=== PATIENT | male | born 1995 | race Caucasian/White ===

== ENCOUNTER 2016-12-25 16:46 | Emergency (ER) | payer BC, OTHER ==
[~2016-12-25] VITALS: Wt 65.9 kg
[2016-12-25] MEDS ORDERED: FLUORESCEIN STRIP RIGHT EYE ONE (19:30)
[2016-12-25] MEDS ORDERED: HYDR-906 PO (19:51)
[2016-12-25] MEDS ORDERED: NAPR-688 PO (19:51)
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
== END 2016-12-25 20:02 | disposition home or self-care (01) ==
LOC: FTE 16:46
DX: S01.112A Laceration without foreign body of left eyelid and periocular area, initial encounter (principal); F17.210 Nicotine dependence, cigarettes, uncomplicated; W50.0XXA Accidental hit or strike by another person, initial encounter; Y92.9 Unspecified place or not applicable
CPT/HCPCS: 99283

== ENCOUNTER 2017-01-16 01:19 | Emergency (ER) | payer BC ==
[~2017-01-16] VITALS: Ht 172.7 cm; Wt 66.0 kg
[~2017-01-16 01:19] MED LIST: HYDR-906 PO; NAPR-688 PO
[2017-01-16 01:21] VITALS: Ht 172.7 cm; Wt 66.0 kg
[2017-01-16] MEDS ORDERED: morphine 4 MG/ML VIAL IV STA (01:38)
[2017-01-16] MEDS ORDERED: ONDANSETRON 4 MG INJ IV STA (01:38)
[2017-01-16] MEDS ORDERED: DIAZEPAM 5 MG/ML SYG IV ONE (02:00)
--- NOTE | 2017-01-16 02:07 | ERD ---
ER Documentation Chief Complaint Chief Complaint pT REPORTS HE WOKE UP AT 0100 UNABLE TO CLOSE MOUTH HPI 21-year-old male presents here in emergency department for complaints of his jaw being stuck, unable to close the mouth, patient woke up with it. Patient denies any trauma in affected area. Patient denies having this a problem before. Patient denies any fever chills. Patient denies recent possible tetanus exposure, has up-to-date tetanus vaccine. He did not have any puncture wound or lacerations previously. Patient denies any stiffness in other parts of the body. ROS All systems reviewed and are negative except as per history of present illness. Medications Home Meds Active Scripts Hydrocodone/Acetaminophen ([place] 5-325 Tablet) 1 Each Tablet, 1 EACH PO Q6, #10 TAB Prov:VIRAL RAY DO 12/25/16 Naproxen* (Naproxen*) 500 Mg Tablet, 500 MG PO BID Y for PAIN, #14 TAB Prov:VIRAL RAY DO 12/25/16 Allergies Allergies: Coded Allergies: No Known Allergy (Unverified , 12/25/16) PMhx/Soc Medical and Surgical Hx: pt denies Medical Hx, pt denies Surgical Hx History of Surgery: No Anesthesia Reaction: No Hx Neurological Disorder: No Hx Respiratory Disorders: No Hx Cardiac Disorders: No Hx Psychiatric Problems: No Hx Miscellaneous Medical Probl: No Hx Alcohol Use: Yes Hx Substance Use: Yes (marijuana) Hx Tobacco Use: Yes Smoking Status: Never smoker FmHx Family History: No coronary disease, No diabetes, No other Physical Exam Vitals Vital Signs Date Time Temp Pulse Resp B/P Pulse Ox O2 Delivery O2 Flow Rate FiO2 01/16/17 01:21 98.3 73 16 136/80 98 Physical Exam GENERAL: The patient is well developed and appropriate for usual state of health, in no apparent distress. HEENT: Atraumatic. Ears: Normal tympanic membrane, no erythema or bulging. No ear canal swelling. No ear discharge. Nose: normal nasal turbinates, no erythema or swelling. Normal nasal discharge. Throat: oropharynx clear. No tonsillar swelling or tonsillar exudates. No lymphadenopathy. Noted mild to be open, unable to close the jaw CHEST: Clear to auscultation bilaterally. There are no rales, wheezes or rhonchi. HEART: Regular rate and rhythm. No murmurs, clicks, rubs or gallops. No S3 or S4. ABDOMEN: Soft, nontender and nondistended. Good bowel sounds. No rebound or guarding. No gross peritonitis. No gross organomegaly or masses. No Schreiber sign or McBurney point tenderness. BACK: No midline or flank tenderness. EXTREMITIES: Equal pulses bilaterally. There is no peripheral clubbing, cyanosis or edema. No focal swelling or erythema. Full range of motion. Grossly neurovascularly intact. NEURO: Alert and oriented. Cranial nerves 2-12 intact. Motor strength in all 4 extremities with 5/5 strength. Sensation grossly intact. Normal speech and gait. SKIN: There is no apparent rash or petechia. The skin is warm and dry. HEMATOLOGIC AND LYMPHATIC: There is no evidence of excessive bruising or lymphedema. No gross cervical, axillary, or inguinal lymphadenopathy. Results 24 hrs Current Medications Medications (Trade) Dose Ordered Sig/Daya Route PRN Reason Start Time Stop Time Status Last Admin Dose Admin Diazepam (Valium) 5 mg ONCE ONCE IV 01/16/17 02:00 01/16/17 02:01 DC 01/16/17 01:49 Morphine Sulfate (morphine) 4 mg ONCE STAT IV 01/16/17 01:38 01/16/17 01:40 DC 01/16/17 01:49 Ondansetron HCl (Zofran Inj) 4 mg ONCE STAT IV 01/16/17 01:38 01/16/17 01:40 DC 01/16/17 01:49 Patient was given medication for pain here in emergency department, after treatment, patient verbalized feeling much better. Patient's pain is improved. Valium was given here as muscle relaxant. PROCEDURE: Noncontrast CT examination of the facial bones. CLINICAL INDICATION: Dislocation of the mandible. TECHNIQUE: Noncontrast CT examination of the facial bones, with axial, sagittal and coronal reformatted images. CTDI: 29.67 and DLP: 703.60. DICOM images are provided for interpretation. One or more of the following techniques were employed to reduce the patient's dose and exposure. 1. Computer automated dose reduction technique was employed. 2. Patient dose was reduced by reducing mA and or kV based upon patient weight. 3. Patient dose was reduced by employing iterative technique for generation of images. COMPARISON: None FINDINGS: Anterior dislocation of the bilateral articular mandibular condyles at the bilateral temporal bone, with anterior dislocation measuring about 22 mm on the right and 17 mm on the left. Otherwise, no evident acute fracture. The soft tissues are otherwise unremarkable. IMPRESSION: Anterior dislocation of the bilateral articular mandibular condyles at the bilateral temporal bone. RPTAT: [facility] Physician Jossie Date Time Electronically viewed and signed by Serge An Physician on 01/16/2017 02:34 RS/ CC: RIKY BOWEN NP I discussed this case with my attending physician, Dr. Chinchilla, who came at the bedside with me to evaluate the patient. Procedure note: After patient's verbal consent, patient was given IV Valium, after given muscle relaxant, the TMJ dislocation was reduced and put back in place, after the procedure, patient able to open and close the mouth without any difficulty. Patient tolerated procedure well. Procedures/MDM Medical decision making: Patient had TMJ dislocation, bilateral TMJ joint was dislocated, this was relocated and reduced of the bedside without any difficulty. Patient was given muscle relaxant, Valium at home to help with relaxing the muscles, no symptoms of any fractures. No symptoms of any oral airway obstruction. Patient tolerated procedure well. Patient was advised to follow-up with primary care doctor in 2-3 days for reevaluation of symptoms, TMJ syndrome precautions and instructions were given. Patient was advised to avoid eating hard food, chewing gum, or excessive use of mandible joint in the next couple days. Patient was advised to return to emergency department for any worsening symptoms. RX: norco, valium Disposition: Home. Stable. Departure Diagnosis: Primary Impression: TMJ (dislocation of temporomandibular joint) Encounter type: initial encounter Qualified Code: S03.00XA - Dislocation of temporomandibular joint, initial encounter Condition: Stable Patient Instructions: Helping Your Temporomandibular Joint (TMJ) Heal, Tmj Syndrome RIKY BOWEN NP Jan 16, 2017 02:07
--- NOTE | 2017-01-16 02:34 | RADRPT ---
PROCEDURE: Noncontrast CT examination of the facial bones. CLINICAL INDICATION: Dislocation of the mandible. TECHNIQUE: Noncontrast CT examination of the facial bones, with axial, sagittal and coronal reform atted images. CTDI: 29.67 and DLP: 703.60. DICOM images are provided for interpretation. One or more of the following techniques were employed to reduce the patient's dose and exposure. 1. Computer automated dose reduction technique was employed. 2. Patient dose was reduced by reducing mA and or kV based upon patient weight. 3. Patient dose was reduced by employing iterative technique for generation of images. COMPARISON: None FINDINGS: Anterior dislocation of the bilateral articular mandibular condyles at the bilateral temporal bone, with anterior dislocation measuring about 22 mm on the right and 17 mm on the left. Otherwise, no evident acute fracture. The soft tissues are otherwise unremarkable. IMPRESSION: Anterior dislocation of the bilateral articular mandibular condyles at the bilateral temporal bone. RPTAT: [facility] Physician Jossie Date Time Electronically viewed and signed by Physician Jossie on 01/16/2017 02:34 JONATAN/
[2017-01-16] MEDS ORDERED: IBUP-1542 PO (02:49)
[2017-01-16] MEDS ORDERED: HYDR-906 PO (02:49)
[2017-01-16] MEDS ORDERED: DIAZ-90 PO (02:49)
== END 2017-01-16 03:12 | disposition home or self-care (01) ==
LOC: FTE 01:19
DX: S03.00XA Dislocation of jaw, unspecified side, initial encounter (principal); X58.XXXA Exposure to other specified factors, initial encounter; Y92.9 Unspecified place or not applicable; Z87.891 Personal history of nicotine dependence
CPT/HCPCS: 70486; 96374; 96375; 99285; J2270; J2405; J3360